=== PATIENT | male | born 1950 | race Caucasian/White ===

== ENCOUNTER 2016-08-17 08:39 | Day surgery (SDC) | payer OTHER ==
[~2016-08-17] VITALS: Ht 180.3 cm; Wt 84.8 kg
[~2016-08-17 08:39] MED LIST: FLOMAX 0.40.4 MG/CAP PO; LEVAQUIN 5500 MG/TAB PO; LORTAB 5/500 501 TAB PO; NO HOME MEDICATIONS; PERCOCET 500 MG1 TAB PO; PHENERGAN 25 TA25 MG PO
[2016-08-17 09:23] VITALS: BP 146/90; PULSE 66; TEMP 98
[2016-08-17] MEDS ORDERED: MULTI VITAMINS1 TAB PO (09:28)
[2016-08-17] MEDS ORDERED: NAPROSYN 2250 MG/TAB PO (09:29)
[2016-08-17 10:55] VITALS: BP 121/73; PULSE 59; TEMP 98.1
[2016-08-17 11:10] VITALS: BP 115/72; PULSE 57
[2016-08-17 11:25] VITALS: BP 117/77; PULSE 59
[2016-08-17 13:57] VITALS: BP 114/69; PULSE 55
== END 2016-08-17 11:38 | disposition home or self-care (01) ==
LOC: SDCO 08:39
DX: Z12.11 Encounter for screening for malignant neoplasm of colon (principal)
CPT/HCPCS: J2250; J3010; J7030